=== PATIENT | female | born 1955 | race Caucasian/White ===

== ENCOUNTER 2025-07-12 09:48 | Outpatient (REF) | payer MEDICARE, SELFPAY ==
--- OUTSIDE RECORDS SUMMARY | 2025-07-12 10:03 | XMS_ITS | Encounter Summary ---
Author Organization [facility] Address [address] [address] [place] [id number] Phone Care Team Providers Care Gse Mechanic Name Role Phone Atilio Redding MD Primary Care Provider + Reason for Referral * MRI/CAT Scan - Closed Specialty Diagnoses / Procedures Referred By Contac t Referred To Contact Radiology Diagnoses Chest pain, unspecified type Procedures NC Myocardial Perfusion Stress Single NC Myocardial Perfusion Exercise Multiple Demetri Ritchie MD Phone: tel: fax: [email or web address] Referral ID Status Reason Start Date Expiration Date Visits Re quested Visits Authorized [id number] Closed 08/31/2018 11/29/2018 1 1 Encounter Details Date Type Department Care Team (Latest Contact Info) Description 09/07/2018 [facility] [address] [place] [address] [address], [address] [place] [address] Demetri Ritchie MD [address] [place] [address] Chest pain, unspecified type Social History Tobacco Use Types Packs/Day Years Used Date Smoking Tobacco: Never Assessed Comments Unknown Sex and Gender Information Value Date Recorded Sex Assigned at Not on file Legal Sex Female 11:31 AM EDT Gender Identity Not on file Sexual Orientation Not on file documented as of this encounter Plan of Treatment Not on file documented as of this encounter Results * NC Myocardial Perfusion Stress Single (09/07/2018 8:54 AM EDT) Nuc Stress EF 59 % LV Systolic Volume Index 36 mL/m2 LV Diastolic Volume Index 87 mL/m2 Anatomical Region Laterality Modality Heart Ultrasound Narrative 09/07/2018 4:32 PM EDT Normal study. There is no evidence of myocardial infarction or ischemia. Normal LV size and function with no regional wall motion abnormalities. Very low likelihood of hemodynamically significant coronary artery disease. Low risk study for myocardial events or cardiac in the next two years. Nuclear Study Quality Overall image quality is good. The test performed was a Stress Only Skip Protocol exercise stress test. Tc99m Sestamibi was administered intravenously at peak exercise followed by one minute of exercise. The stress images were obtained 20 minutes following the radiopharmaceutical injection.. There are no artifacts present. Study was successfully gated. Response to Stress Wt:139lbs Patient exercised for 11:14 minutes on a standard Skip protocol achieving 13.4 METs and 93% MPHR (148 BPM). The test was terminated due to fatigue. SUMMARY: 1. RESTING ECG: SB 53 bpm with RSR pattern V1-V2. 2. EXERCISE ECG: No ischemic ECG changes. 3. SYMPTOMS: Patient did not report symptoms concerning for angina. 4. PHYSIOLOGY: Appropriate exercise physiology. Resting heart rate of 54 bpm loreta to a max heart rate of 148 bpm, this represents 93% MPHR. Resting BP of 118/70 loreta to a max BP of 158/82. Vital signs stable and returned to baseline prior to discharge from the lab. Achieved 13.4 METs consistent with high functional capacity for age. 5. ARRHYTHMIA: No ectopy noted. CONCLUSION: Normal ECG portion of exercise stress test without ECG changes suggestive of ischemia and without symptoms concerning for angina. Appropriate exercise physiology. high functional capacity. Bui treadmill score of +11 consistent with mild risk. Report reviewed with Dr. Malagon. Nuclear images and report to follow. Yolanda Clemens PA-C. Stress Function Comments Post-stress ejection fraction was 59%. Stress end diastolic index: 87 mL/m2. Stress end systolic index: 36 mL/m2. Nuclear Prior Study There is no prior study available for comparison. Perfusion Scoring Stress Summed Score: 0 Percent Normal: 0.00% The left ventricular perfusion is normal. us Demetri Ritchie MD CV NM CARDIAC Final Re sult documented in this encounter Visit Diagnoses Diagnosis Chest pain, unspecified type Chest pain, unspecified type documented in this encounter Care Teams Gse Mechanic Relationship Specialty Start Date End Date Atilio Redding MD [address] [facility] [address] [place] [id number] PCP - General Internal Medicine 08/18/18 documented as of this encounter Additional Source Comments The information contained in this document represents components of the legal health record. It is not the complete legal health record.[facility]
== END 2025-07-12 09:49 | disposition home or self-care (01) ==
LOC: HO.SH 09:48
PROVIDERS: Visit Provider Physician Assistant Medical
DX: Z01.118 Encounter for examination of ears and hearing with other abnormal findings (principal); H90.6 Mixed conductive and sensorineural hearing loss, bilateral
CPT/HCPCS: 92557; 92567